=== PATIENT | female | born 1995 | race African-American/Black ===

== ENCOUNTER 2017-03-27 16:34 | Emergency (ER) | payer MEDICAID ==
[~2017-03-27] VITALS: Ht 154.9 cm; Wt 109.0 kg
[2017-03-27] MEDS ORDERED: SODIUM CHLORIDE 0.9% 1,000 ML IV ONE (21:22)
[2017-03-27 21:38] LABS: BASOPHILS % 1.3 % (0.0-2.0); EOSINOPHILS % 0.5 % (0.0-5.0); HEMATOCRIT. 39.8 % (36.0-48.0); LYMPHOCYTES % 45.8 % (20.0-50.0); MEAN CORPUSCULAR HEMOGLOBIN 26.8 pg (28.0-32.0); MEAN CORPUSCULAR VOLUME 81.8 fL (81.0-99.0); MEAN PLATELET VOLUME 8.2 fl (7.4-10.4); MONOCYTES % 10.1 % (2.0-8.0); NEUTROPHILS % 42.3 % (40.0-76.0); PLATELET 304 x1000/uL (130-400); RED BLOOD CELL COUNT 4.87 mill/uL (4.2-5.4); RED CELL DISTRIBUTION WIDTH 15.2 % (11.6-14.6)
[2017-03-27 21:45] LABS: CHLORIDE 102 mEq/L (98-107); PROTHROMBIN TIME 10.8 sec (9.4-11.6)
[2017-03-27 21:57] LABS: HCG SCREEN NEGATIVE
[2017-03-27 22:03] LABS: CLARITY URINE CLOUDY (CLEAR); COLOR URINE DARK YELLOW (YELLOW); KETONES URINE 4+ (NEGATIVE); LEUKOCYTE ESTERASE URINE NEGATIVE (NEGATIVE); NITRITE URINE NEGATIVE (NEGATIVE); OCCULT BLOOD URINE NEGATIVE (NEGATIVE); PH URINE 5.5 (4.5-8.0); PROTEIN URINE 1+ (NEGATIVE)
[2017-03-27 22:58] VITALS: BP 143/65
== END 2017-03-27 23:04 | disposition home or self-care (01) ==
LOC: ER 17:33
DX: J40 Bronchitis, not specified as acute or chronic (principal); B34.9 Viral infection, unspecified; R11.2 Nausea with vomiting, unspecified
CPT/HCPCS: 36415; 71045; 80053; 81001; 84703; 85025; 85610; 87804; 99285; J7030; Z7610